=== PATIENT | male | born 1975 | race Caucasian/White ===

== ENCOUNTER 2017-03-20 18:48 | Emergency (ER) | payer MEDICAID, OTHER ==
[~2017-03-20] VITALS: Ht 162.6 cm; Wt 63.5 kg
[~2017-03-20 18:48] MED LIST: CEPH500C2 PO
[2017-03-20] MEDS ORDERED: HYDROCODONE/ACETAMINOPHEN 5-325 MG TABLET PO ONE (20:45)
[2017-03-20] MEDS ORDERED: CEPHALEXIN MONOHYDRATE 500 MG CAPSULE PO ONE (20:45)
[2017-03-20 20:46] LABS: BASOPHILS % (AUTO) 0.5 % (0.0-2.0); EOSINOPHILS % (AUTO) 1.4 % (1.0-6.0); HEMATOCRIT 40.9 % (41-53); LYMPHOCYTES # (AUTO) 2.1 K/uL (1.0-4.8); LYMPHOCYTES % (AUTO) 18.1 % (22.0-44.0); MEAN CORPUSCULAR HEMOGLOBIN 26.9 pg (26.0-34.0); MEAN CORPUSCULAR HGB CONC 31.8 G/dL (31.0-37.0); MEAN CORPUSCULAR VOLUME 85 fL (80-100); MONOCYTES # (AUTO) 0.6 K/uL (0.1-1.0); MONOCYTES % (AUTO) 5.1 % (2.0-9.0); NEUTROPHILS # (AUTO) 8.7 K/uL (1.8-7.7); NEUTROPHILS % (AUTO) 74.9 % (40.0-70.0); PLATELET COUNT (AUTO) 497 K/uL (150-450); RED BLOOD CELL COUNT(AUTO) 4.83 MIL/uL (4.50-5.90); RED CELL DISTRIBUTION WIDTH 14.1 % (11.5-14.5); WHITE BLOOD COUNT (AUTO) 11.7 K/uL (4.5-11.0)
[2017-03-20 20:53] LABS: ANION GAP 9 mmol/L (8-16); CALCIUM, TOTAL 8.4 mg/dL (8.8-10.5); CARBON DIOXIDE 28 mmol/L (22-29); CHLORIDE 101 mmol/L (98-107); CREATININE 0.88 mg/dL (0.60-1.30); GLOMERULAR FILTR. RATE CALC > 60 mL/min (>60); SODIUM SERUM 138 mmol/L (136-145); UREA NITROGEN, BLOOD 12 mg/dL (7-18)
[2017-03-20 21:30] VITALS: BP 122/78
== END 2017-03-20 21:49 | disposition home or self-care (01) ==
LOC: EMS 18:49
DX: N45.1 Epididymitis (principal); F17.210 Nicotine dependence, cigarettes, uncomplicated
CPT/HCPCS: 76870; 99285; 99406

== ENCOUNTER 2017-03-23 09:40 | Emergency (ER) | payer OTHER ==
[~2017-03-23] VITALS: Ht 162.6 cm; Wt 63.0 kg
[2017-03-23] MEDS ORDERED: PAIN PO (09:49)
[2017-03-23] MEDS ORDERED: ANTIBIOTIC PO (09:51)
[2017-03-23] MEDS ORDERED: CefTRIAXone SODIUM 1 GM/VIAL IM ONE (10:00)
[2017-03-23] MEDS ORDERED: LIDOCAINE HCL/PF 1% 2 ML VIAL IM ONE (10:00)
[2017-03-23] MEDS ORDERED: AZITHROMYCIN 250 MG TABLET PO ONE (10:00)
[2017-03-23 10:33] VITALS: BP 138/83
== END 2017-03-23 10:45 | disposition home or self-care (01) ==
LOC: EMS 09:41
DX: N45.1 Epididymitis (principal); F17.210 Nicotine dependence, cigarettes, uncomplicated; Z02.89 Encounter for other administrative examinations
CPT/HCPCS: 96372; 99284; J0696; J3490

== ENCOUNTER 2017-05-25 02:05 | Emergency (ER) | payer OTHER ==
[~2017-05-25] VITALS: Ht 160 cm; Wt 64.0 kg
[~2017-05-25 02:05] MED LIST changes: +ANTIBIOTIC PO; -CEPH500C2 PO; +PAIN PO
[2017-05-25] MEDS ORDERED: BUPIVACAINE HCL/PF 0.25% 10 ML VIAL INJ ONE (03:00)
[2017-05-25 03:41] VITALS: BP 140/86
== END 2017-05-25 03:52 | disposition home or self-care (01) ==
LOC: EMS 02:06
DX: L73.2 Hidradenitis suppurativa (principal); M25.511 Pain in right shoulder; F17.210 Nicotine dependence, cigarettes, uncomplicated
CPT/HCPCS: 10160; 99284; J3490

== ENCOUNTER 2021-04-14 07:39 | Emergency (ER) | payer OTHER ==
[~2021-04-14] VITALS: Ht 177.8 cm; Wt 81.8 kg
[2021-04-14] MEDS ORDERED: KETOROLAC TROMETHAMINE 60 MG/2 ML VIAL IM ONE (08:00)
[2021-04-14] MEDS ORDERED: AMOX TR/POT CLAV 875 MG/125 MG TABLET PO ONE (08:00)
[2021-04-14] MEDS ORDERED: PERTUSS(ACELL),DIPH,TET VAC/PF 0.5 ML SYRINGE IM. ONE (08:00)
[2021-04-14] MEDS ORDERED: LIDOCAINE 1%/EPI 1:200,000/PF 10 ML VIAL SQ ONE (08:15)
[2021-04-14 09:12] VITALS: BP 144/94
== END 2021-04-14 09:42 ==
LOC: EMS 07:42
DX: S81.851A Open bite, right lower leg, initial encounter (principal); F17.210 Nicotine dependence, cigarettes, uncomplicated; W54.0XXA Bitten by dog, initial encounter; Y93.89 Activity, other specified; Y92.89 Other specified places as the place of occurrence of the external cause; Y99.8 Other external cause status
CPT/HCPCS: 12002; 73590; 90471; 90715; 96372; 99284; J1885; J3490

== ENCOUNTER 2021-05-19 19:38 | Emergency (ER) | payer OTHER ==
[~2021-05-19] VITALS: Ht 162.6 cm; Wt 63.6 kg
[2021-05-19 19:58] VITALS: BP 138/103
== END 2021-05-19 21:30 | disposition left against medical advice (07) ==
LOC: EMS 19:40
DX: M79.89 Other specified soft tissue disorders (principal); Z53.21 Procedure and treatment not carried out due to patient leaving prior to being seen by health care provider